=== PATIENT | female | born 1990 | race Caucasian/White ===

== ENCOUNTER 2016-08-27 07:43 | Inpatient (IN) | payer OTHER ==
[~2016-08-27] VITALS: Ht 167.6 cm; Wt 104.5 kg
[~2016-08-27 07:43] MED LIST: IBUP800T PO; OXYC-302 PO; PNV1TABL11 PO; iron PO
[2016-08-28] MEDS ORDERED: OXYTOCIN 30U/ 0.9% NaCL 500ML 500 ML ONE (06:38)
[2016-08-28 06:39] VITALS: BP 126/76
[2016-08-28] MEDS ORDERED: OXYTOCIN 30U/ 0.9% NaCL 500ML 500 ML IV PRN (06:48)
[2016-08-28] MEDS ORDERED: OXYTOCIN 30U/ 0.9% NaCL 500ML 500 ML IV ONE (06:48)
[2016-08-28] MEDS: LACTATED RINGERS 1,000 ML IV SCH ×2 (06:59→08:56)
[2016-08-28] MEDS ORDERED: ONDANSETRON 2MG/ML, 2ML IVPush PRN (07:00)
[2016-08-28] MEDS ORDERED: FENTANYL PF 100 MCG/2ML IVPush PRN (07:00)
[2016-08-28] MEDS ORDERED: FENTANYL PF 100 MCG/2ML IV PRN (07:00)
[2016-08-28] MEDS ORDERED: NEWBORN KIT ONE (07:41)
[2016-08-28] MEDS ORDERED: FENTANYL/BUPIV./NS/PF 250 ML EPIDCONT ONE (08:24)
[2016-08-28] MEDS ORDERED: FENTANYL/BUPIV./NS/PF 250 ML EPIDCONT SCH (09:24)
[2016-08-28] MEDS ORDERED: LACTATED RINGERS 1,000 ML IV SCH (09:24)
[2016-08-28] MEDS ORDERED: LACTATED RINGERS 1,000 ML IVBOLUS PRN (09:30)
[2016-08-28] MEDS: OXYTOCIN 30U/ 0.9% NaCL 500ML 500 ML IV SCH ×2 (12:06→22:06)
[2016-08-28] MEDS ORDERED: IBUPROFEN 600 MG TABLET ONE (12:11)
[2016-08-28] MEDS: IBUPROFEN 600 MG TABLET PO PRN ×2 (12:20→18:52)
[2016-08-28] MEDS ORDERED: METOCLOPRAMIDE 5 MG/ML, 2ML IV PRN (12:30)
[2016-08-28] MEDS ORDERED: ACETAMINOPHEN 325 MG TABLET PO PRN ×2 (12:30)
[2016-08-28] MEDS ORDERED: RHOGAM FROM BLOOD BANK 1 NOTE EA IM/IV ONE (12:30)
[2016-08-28] MEDS ORDERED: METHYLERGONOVINE 0.2 MG/ML IM PRN (12:30)
[2016-08-28] MEDS ORDERED: DIPH,PERTUSS(ACELL),TET VAC/PF NC IM-VACC PRN (12:30)
[2016-08-28] MEDS ORDERED: CARBOPROST TROMETHAMINE 250 MCG/ML, 1ML IM PRN (12:30)
[2016-08-28] MEDS ORDERED: OXYTOCIN 10 UNITS/ML, 1ML IM PRN (12:30)
[2016-08-28] MEDS ORDERED: GLYCERIN ADULT SUPP PR PRN (12:30)
[2016-08-28] MEDS ORDERED: BISACODYL 10 MG SUPP PR PRN (12:30)
[2016-08-28] MEDS ORDERED: MAGNESIUM HYDROXIDE 8%, 30ML UDC PO PRN (12:30)
[2016-08-28] MEDS ORDERED: CALCIUM CARBONATE 500 MG TAB.CHEW PO PRN (12:30)
[2016-08-28] MEDS ORDERED: MISOPROSTOL 200 MCG TABLET PR PRN (12:30)
[2016-08-28] MEDS ORDERED: OXYcodone/APAP 5/325MG TABLET PO PRN (12:30)
[2016-08-28] MEDS ORDERED: ONDANSETRON 2MG/ML, 2ML IV PRN (12:30)
[2016-08-28 14:20] VITALS: BP 120/81
[2016-08-28 16:45] VITALS: BP 129/82
[2016-08-28] MEDS: OXYcodone/APAP 5/325MG TABLET PO PRN ×2 (18:52→22:41)
[2016-08-28 21:30] VITALS: BP 125/81
[2016-08-28] MEDS: DOCUSATE 100 MG CAPSULE PO PRN (22:41)
[2016-08-29] MEDS: IBUPROFEN 600 MG TABLET PO PRN ×2 (01:06→08:14)
[2016-08-29 01:07] VITALS: BP 128/82
[2016-08-29 04:52] VITALS: BP 117/72
[2016-08-29] MEDS: OXYcodone/APAP 5/325MG TABLET PO PRN ×2 (04:58→11:26)
[2016-08-29] MEDS ORDERED: OXYC-302 PO (07:19)
[2016-08-29] MEDS ORDERED: IBUP800T PO (07:20)
[2016-08-29 07:32] VITALS: BP 124/80
[2016-08-29] MEDS: OXYTOCIN 30U/ 0.9% NaCL 500ML 500 ML IV SCH (08:06)
[2016-08-29] MEDS: DOCUSATE 100 MG CAPSULE PO PRN (08:13)
[2016-08-29] MEDS ORDERED: PRENATAL VIT/IRON/FA 1 EACH TABLET PO SCH (09:00)
== END 2016-08-29 16:35 | disposition home or self-care (01) | DRG 775 ==
LOC: LDIP 08-28 06:25 → 2NW 08-28 14:19
PROVIDERS: ADMIT Obstetrics & Gynecology; ATTEND Obstetrics & Gynecology
PROC: 10E0XZZ Delivery of Products of Conception, External Approach (ICD-10-PCS; principal; 2016-08-28)
PROC: 10907ZC Drainage of Amniotic Fluid, Therapeutic from Products of Conception, Via Natural or Artificial Opening (ICD-10-PCS; 2016-08-28)
PROC: 3E0S3CZ (ICD-10-PCS; 2016-08-28)
PROC: 00HU33Z Insertion of Infusion Device into Spinal Canal, Percutaneous Approach (ICD-10-PCS; 2016-08-28)
PROC: 3E033VJ Introduction of Other Hormone into Peripheral Vein, Percutaneous Approach (ICD-10-PCS; 2016-08-28)
PROC: 0HQ9XZZ Repair Perineum Skin, External Approach (ICD-10-PCS; 2016-08-28)
DX: O70.0 First degree perineal laceration during delivery (principal); Z37.0 Single live birth; Z3A.39 39 weeks gestation of pregnancy
CPT/HCPCS: 36415; 85025; 86850; 86900; J2590; J3010; J7120

== ENCOUNTER 2018-09-30 08:48 | Outpatient (CLI) | payer OTHER ==
[~2018-09-30] VITALS: Ht 167.6 cm; Wt 104.5 kg
[~2018-09-30 08:48] MED LIST changes: +IBUP-1223 PO; -IBUP800T PO
[2018-09-30 09:22] LABS: BASOPHILS # (AUTO) 0.03 x10^3/uL (0-0.1); BASOPHILS % (AUTO) 0 % (0-1); EOSINOPHILS # (AUTO) 0.11 x10^3/uL (0-0.4); EOSINOPHILS % (AUTO) 1 % (1-7); LYMPHOCYTES # (AUTO) 1.93 x10^3/uL (1-3.4); LYMPHOCYTES % (AUTO) 25 % (22-44); MD NO; MEAN CORPUSCULAR VOLUME 87.3 fL (80-100); MONOCYTES # (AUTO) 0.66 x10^3/uL (0.2-0.8); MONOCYTES % (AUTO) 9 % (2-9); NEUTROPHILS # (AUTO) 5.09 x10^3/uL (1.8-6.8); NEUTROPHILS % (AUTO) 65 % (42-75); PLATELET COUNT 311 x10^3/uL (130-400); RED BLOOD COUNT 3.79 x10^6/uL (3.82-5.3); RED CELL DISTRIBUTION WIDTH 14.8 % (9.6-15.2)
[2018-09-30 09:40] LABS: ALANINE AMINOTRANSFERASE 16 U/L (12-78); ALBUMIN 2.5 g/dL (3.4-5.0); ANION GAP 8 mmol/L (5-15); CALCIUM 11.9 mg/dL (8.5-10.1); CHLORIDE 106 mmol/L (98-107); CREATININE 0.94 mg/dL (0.55-1.02)
[2018-09-30 09:43] LABS: ALKALINE PHOSPHATASE 84 U/L (45-117); BILIRUBIN,TOTAL 0.2 mg/dL (0.2-1.0); TOTAL PROTEIN 6.8 g/dL (6.4-8.2)
[2018-09-30 09:52] LABS: BILIRUBIN, DIRECT < 0.1 mg/dL (0.1-0.2)
[2018-09-30 09:58] VITALS: BP 123/73
[2018-09-30 10:12] LABS: PROTEIN/CREATININE RATIO,URINE < 195 (0-200); TOTAL PROTEIN,URINE RANDOM < 5 mg/dL (0-12)
[2018-09-30 10:25] LABS: MICROSCOPIC INDICATED
== END 2018-09-30 12:55 | disposition home or self-care (01) ==
LOC: LDOP 08:48
PROVIDERS: ATTEND Obstetrics & Gynecology
DX: O16.3 Unspecified maternal hypertension, third trimester (principal); Z3A.37 37 weeks gestation of pregnancy
CPT/HCPCS: 36415; 59025; 76819; 80053; 81001; 82248; 82570; 84156; 84550; 85025; 99211; G0463

== ENCOUNTER 2018-10-08 02:11 | Inpatient (IN) | payer OTHER ==
[~2018-10-08] VITALS: Ht 167.6 cm; Wt 104.5 kg
[2018-10-08] MEDS ORDERED: OXYTOCIN 30U/ 0.9% NaCL 500ML 500 ML IV ONE (02:36)
[2018-10-08] MEDS ORDERED: D5%-LACTATED RINGERS 1,000 ML IV SCH (02:36)
[2018-10-08] MEDS ORDERED: FENTANYL/BUPIV./NS/PF 250 ML EPIDCONT SCH ×2 (02:36→03:36)
[2018-10-08] MEDS ORDERED: NEWBORN KIT ONE (02:44)
[2018-10-08] MEDS ORDERED: OXYTOCIN 30U/ 0.9% NaCL 500ML 500 ML ONE ×2 (02:44→09:39)
[2018-10-08] MEDS ORDERED: ONDANSETRON 2MG/ML, 2ML IVPush PRN (03:00)
[2018-10-08] MEDS ORDERED: FENTANYL PF 100 MCG/2ML IV PRN (03:00)
[2018-10-08] MEDS ORDERED: TERBUTALINE 1 MG/ML, 1ML IVPush PRN (03:00)
[2018-10-08] MEDS ORDERED: FENTANYL PF 100 MCG/2ML IVPush PRN (03:00)
[2018-10-08] MEDS ORDERED: METOCLOPRAMIDE 5 MG/ML, 2ML IVPush PRN (03:00)
[2018-10-08] MEDS ORDERED: SODIUM CITRATE/CITRIC ACID 15 ML UDC PO PRN (03:00)
[2018-10-08] MEDS ORDERED: CALCIUM CARBONATE 500 MG TAB.CHEW PO PRN (03:00)
[2018-10-08] MEDS: LACTATED RINGERS 1,000 ML IV SCH ×4 (03:10→11:48)
[2018-10-08 03:14] LABS: BASOPHILS # (AUTO) 0.02 x10^3/uL (0-0.1); BASOPHILS % (AUTO) 0 % (0-1); EOSINOPHILS # (AUTO) 0.06 x10^3/uL (0-0.4); EOSINOPHILS % (AUTO) 1 % (1-7); LYMPHOCYTES # (AUTO) 2.53 x10^3/uL (1-3.4); LYMPHOCYTES % (AUTO) 29 % (22-44); MD NO; MEAN CORPUSCULAR HGB CONC 32.4 g/dL (32.4-35.8); MEAN CORPUSCULAR VOLUME 86.4 fL (80-100); MEAN PLATELET VOLUME 7.9 fL (7.4-10.4); MONOCYTES % (AUTO) 8 % (2-9); NEUTROPHILS % (AUTO) 62 % (42-75); PLATELET COUNT 323 x10^3/uL (130-400); RED BLOOD COUNT 3.88 x10^6/uL (3.82-5.3); RED CELL DISTRIBUTION WIDTH 14.3 % (9.6-15.2)
[2018-10-08] MEDS ORDERED: BUPIVACAINE 0.25% ONE (03:38)
[2018-10-08] MEDS ORDERED: FENTANYL/BUPIV./NS/PF 250 ML EPIDCONT ONE (03:38)
[2018-10-08] MEDS ORDERED: LACTATED RINGERS 1,000 ML IVBOLUS PRN (04:00)
[2018-10-08] MEDS ORDERED: EPHEDRINE 50 MG/ML, 1ML IVPush PRN (04:00)
[2018-10-08] MEDS ORDERED: NALOXONE 0.4 MG/ML, 1ML IVPush PRN (04:00)
[2018-10-08] MEDS ORDERED: ONDANSETRON 2MG/ML, 2ML IV PRN (09:00)
[2018-10-08] MEDS ORDERED: DIPH,PERTUSS(ACELL),TET VAC/PF NC IM-VACC PRN (09:00)
[2018-10-08] MEDS ORDERED: BISACODYL 10 MG SUPP PR PRN (09:00)
[2018-10-08] MEDS: PRENATAL VIT/IRON/FA 1 EACH TABLET PO SCH (09:00)
[2018-10-08] MEDS ORDERED: MISOPROSTOL 200 MCG TABLET PR PRN (09:00)
[2018-10-08] MEDS ORDERED: ACETAMINOPHEN 325 MG TABLET PO PRN ×2 (09:00)
[2018-10-08] MEDS ORDERED: METHYLERGONOVINE 0.2 MG/ML IM PRN (09:00)
[2018-10-08] MEDS ORDERED: CARBOPROST TROMETHAMINE 250 MCG/ML, 1ML IM PRN (09:00)
[2018-10-08] MEDS ORDERED: METOCLOPRAMIDE 5 MG/ML, 2ML IV PRN (09:00)
[2018-10-08] MEDS ORDERED: DOCUSATE 100 MG CAPSULE PO PRN (09:00)
[2018-10-08] MEDS ORDERED: OXYcodone/APAP 5/325MG TABLET PO PRN (09:00)
[2018-10-08] MEDS: OXYTOCIN 30U/ 0.9% NaCL 500ML 500 ML IV SCH ×2 (09:41→18:38)
[2018-10-08] MEDS: IBUPROFEN 600 MG TABLET PO PRN (13:20)
[2018-10-08 13:36] VITALS: BP 110/67
[2018-10-08 16:53] VITALS: BP 114/72
[2018-10-08] MEDS: OXYcodone/APAP 5/325MG TABLET PO PRN (18:05)
[2018-10-08 19:30] VITALS: BP 124/81
[2018-10-09] MEDS: IBUPROFEN 600 MG TABLET PO PRN ×2 (00:12→09:47)
[2018-10-09] MEDS: OXYcodone/APAP 5/325MG TABLET PO PRN ×3 (00:12→09:48)
[2018-10-09 00:31] VITALS: BP 122/82
[2018-10-09 04:11] VITALS: BP 122/85
[2018-10-09] MEDS: OXYTOCIN 30U/ 0.9% NaCL 500ML 500 ML IV SCH (04:38)
[2018-10-09 07:15] VITALS: BP 126/84
[2018-10-09] MEDS ORDERED: IBUP-1222 PO (08:25)
[2018-10-09 08:30] LABS: BASOPHILS # (AUTO) 0.04 x10^3/uL (0-0.1); BASOPHILS % (AUTO) 0 % (0-1); EOSINOPHILS # (AUTO) 0.26 x10^3/uL (0-0.4); EOSINOPHILS % (AUTO) 3 % (1-7); LYMPHOCYTES # (AUTO) 2.47 x10^3/uL (1-3.4); LYMPHOCYTES % (AUTO) 25 % (22-44); MD NO; MEAN CORPUSCULAR HEMOGLOBIN 27.6 pg (27.0-34.8); MEAN CORPUSCULAR VOLUME 86.2 fL (80-100); MEAN PLATELET VOLUME 7.4 fL (7.4-10.4); MONOCYTES # (AUTO) 0.68 x10^3/uL (0.2-0.8); MONOCYTES % (AUTO) 7 % (2-9); NEUTROPHILS # (AUTO) 6.52 x10^3/uL (1.8-6.8); NEUTROPHILS % (AUTO) 65 % (42-75); PLATELET COUNT 265 x10^3/uL (130-400); RED BLOOD COUNT 3.74 x10^6/uL (3.82-5.3); RED CELL DISTRIBUTION WIDTH 14.4 % (9.6-15.2)
[2018-10-09] MEDS: PRENATAL VIT/IRON/FA 1 EACH TABLET PO SCH (09:47)
== END 2018-10-09 12:23 | disposition home or self-care (01) | DRG 807 ==
LOC: LDOP 02:11 → LDIP 02:40 → 2NW 13:27
PROVIDERS: ADMIT Obstetrics & Gynecology; ATTEND Obstetrics & Gynecology
PROC: 10E0XZZ Delivery of Products of Conception, External Approach (ICD-10-PCS; principal; 2018-10-08)
PROC: 3E0R3BZ Introduction of Anesthetic Agent into Spinal Canal, Percutaneous Approach (ICD-10-PCS; 2018-10-08)
PROC: 00HU33Z Insertion of Infusion Device into Spinal Canal, Percutaneous Approach (ICD-10-PCS; 2018-10-08)
PROC: 10907ZC Drainage of Amniotic Fluid, Therapeutic from Products of Conception, Via Natural or Artificial Opening (ICD-10-PCS; 2018-10-08)
DX: O80 Encounter for full-term uncomplicated delivery (principal); Z37.0 Single live birth; Z3A.38 38 weeks gestation of pregnancy
CPT/HCPCS: 36415; 85025; 86850; 86900; G0378; J3490; J2590; J3010; J7120